=== PATIENT | male | born 1960 | race American Indian/Alaskan Native ===

== ENCOUNTER 2017-08-15 06:33 | Day surgery (SDC) | payer OTHER ==
[2017-08-15] MEDS ORDERED: ECOTRIN PO ONE (06:55)
[2017-08-15] MEDS ORDERED: NACL 0.9% 500 ML 500 ML IV SCH (07:00)
[2017-08-15 07:20] LABS: Basophils % (Auto) 0.2 % (0.0-1.8); Eosinophils # (Auto) 0.9 K/mm3 (0.0-0.4); Eosinophils % (Auto) 12.2 % (0.0-4.3); Hematocrit 48.1 % (35.5-45.6); Hemoglobin 15.6 gm/dl (11.8-15.2); Lymphocytes # (Auto) 2.3 K/mm3 (1.2-5.4); Mean Corpuscular HGB Conc 32 % (32-34); Mean Corpuscular Hemoglobin 28 pg (28-32); Mean Corpuscular Volume 87 fl (84-94); Monocytes % (Auto) 12.8 % (0.0-7.3); Platelet Count 378 K/mm3 (140-440); Red Blood Count 5.56 M/mm3 (3.65-5.03); Red Cell Distribution Width 15.2 % (13.2-15.2)
[2017-08-15 07:31] LABS: INR 0.93 (0.87-1.13)
[2017-08-15 07:33] LABS: BUN/Creatinine Ratio 18; Blood Urea Nitrogen 18 mg/dL (9-20); Calcium 9.2 mg/dL (8.4-10.2); Hemolysis Index 6
[2017-08-15] MEDS ORDERED: HEPARIN 10,000 UNITS/10 ML ONE (08:17)
[2017-08-15] MEDS ORDERED: NITROGLYCERIN SYRINGE 0 ML ONE (08:17)
[2017-08-15] MEDS ORDERED: XYLOCAINE 2% INFILTRATI ONE (08:17)
[2017-08-15] MEDS ORDERED: CALAN ONE (08:17)
[2017-08-15] MEDS ORDERED: HEPARIN/NS 5000 UNIT/500ML(CATH LAB) 1,000 ML IR ONE (08:17)
[2017-08-15] MEDS: VERSED ONE ×2 (08:47→08:49)
[2017-08-15] MEDS: SUBLIMAZE ONE ×3 (08:47→08:50)
[2017-08-15] MEDS ORDERED: LASIX IV ONE ×2 (09:22→10:00)
--- NOTE | 2017-08-15 09:26 | Discharge Summary ---
Short Stay Discharge Plan Activity: advance as tolerated Weight Bearing Status: Partial Weight Bearing Diet: low fat, low cholesterol, low salt Wound: keep clean and dry Special Instructions: no heavy lifting (3 days) Follow up with: REG CHATMAN MD [Other] - 7 Days GUALBERTO TATE MD [Staff Physician] - 7 Days
[2017-08-15] MEDS ORDERED: LASIX ONE (09:44)
[2017-08-15] MEDS ORDERED: NACL 0.9% 1000 ML 1,000 ML IV SCH (10:00)
--- NOTE | 2017-08-15 11:45 | Cardiac Catherization Report ---
CARDIAC CATHETERIZATION REASON FOR PROCEDURE: The patient is a 56-year-old man who was found on outpatient cardiac evaluation to have a severe dilated cardiomyopathy. He is referred for right and left heart catheterization for further evaluation of his systolic heart failure. PROCEDURE: 1. Right heart catheterization. 2. Selective left and right coronary angiography. 3. Left heart catheterization. 4. Left ventricle angiography. The patient was prepped and draped in a sterile fashion after informed consent. The right femoral artery and vein were entered using the Seldinger technique. A 6-Arabic sheath was placed in the artery and an 8 Arabic sheath in the vein. A Dallas-Neela catheter was then advanced into the right femoral vein, and through the right heart and into the pulmonary artery position. Cardiac output was then measured using thermodilution method. Following this, a pigtail catheter was advanced into the left ventricle. Selective left and right heart filling pressures were measured. The pigtail catheter was then withdrawn and right heart pressures were measured and recorded on pullback. Left ventricle angiography was then performed using the pigtail catheter. Following this, the pigtail catheter was withdrawn across the aortic valve and transaortic pressure gradient was recorded. We then performed selective left and right coronary angiography using #4 right and left Angelito catheters. The catheters were then removed, sheath removed. Hemostasis achieved in the arterial site using an Angio-Seal device and in the venous site using manual compression. Procedure was well tolerated by the patient and there were no complications. FINDINGS: HEMODYNAMICS: The mean right atrial pressure was 20. Right ventricular pressure 45/23. Pulmonary artery pressure of 50/35. The mean pulmonary artery wedge pressure was 25. Left ventricular end-diastolic pressure was 30. Ascending aortic pressure was 95/67. There was no significant pressure gradient on pullback across the aortic valve. Cardiac output was 4.7 liters per minute. CORONARY ANGIOGRAPHY: There was dual ostia of the left anterior descending and left circumflex arteries. The left anterior descending artery and its diagonal branches were angiographically normal. The circumflex artery and its obtuse marginal branches were similarly angiographically normal. The right coronary artery was dominant, contained minimal irregularities in its proximal segment, otherwise angiographically normal. The left ventricle was severely dilated. There was severe left ventricular systolic dysfunction with diffuse hypokinesis. Left ventricular ejection fraction estimated at 20-25%. CONCLUSION: 1. Moderate to severe elevation of the right and left heart filling pressures, moderate pulmonary hypertension. 2. Angiographically normal coronary arteries. 3. Dilated nonischemic cardiomyopathy, severe left ventricular systolic dysfunction, ejection fraction 20-25%. RECOMMENDATION: 1. Medical therapy for nonischemic cardiomyopathy. 2. Further evaluation of moderate pulmonary hypertension as indicated. JOB# [id number] CA/NTS
[2017-08-15 13:39] VITALS: BP 100/73
== END 2017-08-15 13:50 | disposition home or self-care (01) ==
LOC: CATHLABREC 06:33
PROVIDERS: ATTEND Internal Medicine Cardiovascular Disease
DX: I42.0 Dilated cardiomyopathy (principal); I11.0 Hypertensive heart disease with heart failure; I50.22 Chronic systolic (congestive) heart failure; I27.20 Pulmonary hypertension, unspecified; M10.9 Gout, unspecified; E66.9 Obesity, unspecified; F17.200 Nicotine dependence, unspecified, uncomplicated; Z68.44 Body mass index [BMI] 60.0-69.9, adult; Z96.651 Presence of right artificial knee joint
CPT/HCPCS: 36415; 80048; 85025; 85610; 85730; 93005; 93010; 93460; 96374; 99156; 99157; C1760; C1894; J1644; J1940; J2250; J3010; J7030; J7040; Q9967